=== PATIENT | male | born 2000 | race Caucasian/White ===

== ENCOUNTER 2020-11-20 00:05 | Emergency (ER) | payer OTHER ==
[2020-11-20] MEDS ORDERED: Dexamethasone 10 MG/ML VIAL ONE (01:13)
[2020-11-20] MEDS ORDERED: Ketorolac Tromethamine 30 MG/ML VIAL ONE (01:14)
== END 2020-11-20 02:20 | disposition home or self-care (01) ==
LOC: CSHERS 00:05
DX: B27.90 Infectious mononucleosis, unspecified without complication (principal); F17.290 Nicotine dependence, other tobacco product, uncomplicated
CPT/HCPCS: 87081; 87430; 96372; 99284; J1100; J1885